=== PATIENT | male | born 1975 | race Caucasian/White ===

== ENCOUNTER 2018-09-03 08:13 | Emergency (ER) | payer BC ==
[~2018-09-03] VITALS: Ht 177.8 cm; Wt 81.8 kg
[2018-09-03 08:17] VITALS: BP 130/83
== END 2018-09-03 09:03 | disposition home or self-care (01) ==
LOC: ED 08:13
DX: S05.01XA Injury of conjunctiva and corneal abrasion without foreign body, right eye, initial encounter (principal); Z85.71 Personal history of Hodgkin lymphoma; X58.XXXA Exposure to other specified factors, initial encounter; Y93.89 Activity, other specified; Y92.89 Other specified places as the place of occurrence of the external cause; Y99.8 Other external cause status